=== PATIENT | male | born 1990 | race Caucasian/White ===

== ENCOUNTER 2017-06-30 17:39 | Emergency (ER) | payer OTHER ==
[~2017-06-30] VITALS: Ht 175.3 cm; Wt 61.2 kg
--- NOTE | ~2017-06-30 | CR63 ---
[facility] A Service [facility] RADIOLOGY TEXT RESULTS PATIENT: DAYAMI LARES LOCATION: [facility] : [birth year] UNIT #: [id number] AGE: [address]: Frankie Salamanca MD SEX: M ORDER DR: [id number] [place], [place] [address] [id number] MR#: [id number] Acc #: [id number] NAME: DAYAMI LARES. : 1990 SEX: M STUDY DATE/TIME: 06/30/2017 19:48 UNIT: [facility] ROOM: STUDY DESCRIPTION: CR Chest 2 View Attending Physician: Frankie Salamanca M.D. Ordering Physician: Frankie Salamanca M.D. Primary Care Physician: Primary Care Physician No MEDICAL IMAGING REPORT This report is preliminary unless electronic signature is present EXAM PA and lateral chest DATE: 06/30/2017 HISTORY Nausea, vomiting, shortness of breath, fever, cough and body aches which began 1 week ago. COMPARISON AP portable chest 12/03/2016 FINDINGS A single AP portable view of the chest shows both lungs to be clear. The heart is normal in size. The mediastinal contour is normal. No significant bone abnormalities are seen. IMPRESSION Normal portable chest. Dictated by... Jenny Gonzales M.D. THIS IS AN ELECTRONICALLY VERIFIED REPORT Jenny Gonzales M.D. at 07/01/2017 9:56 AM DEL/amelia TD: 07/01/2017 00:55 JOB #: [id number] MEDICAL IMAGING REPORT [facility] A Service [facility] RADIOLOGY TEXT RESULTS PATIENT: DAYAMI LARES LOCATION: [facility] : [birth year] UNIT #: [id number] AGE: [address]: Frankie Salamanca MD SEX: M ORDER DR: Page 1 of 1 COPY
[~2017-06-30 17:39] MED LIST: ACETAMINOPHEN PO; ALLERGY RELIEF10 M1 PO; AMOXICILLIN500 M1 PO; AUGMENTIN PO; BACTRIM DS TABL1 TA1 PO; DOXYCYCLINE HY100 M1 PO; FLONASE 0.05% N16 G1; MAGIC MOUTHWASH PO; MUCINEX D ER T1 EACH PO; NO MEDICATIONS; PREDNISONE10 MG/DOSE PO; PREDNISONE50 MG PO; ULTRACET TABLET1 TAB PO; ULTRAM PO; VIBRAMYCIN100 M1 PO
== END 2017-06-30 20:45 | disposition home or self-care (01) ==
LOC: CED 17:39
DX: J02.9 Acute pharyngitis, unspecified (principal)
CPT/HCPCS: 71020; 87651; 99283